=== PATIENT | male | born 1965 | race Caucasian/White ===

== ENCOUNTER 2016-11-23 18:41 | Emergency (ER) | payer OTHER ==
--- NOTE | ~2016-11-23 | ER ---
PATIENT'S NAME: DANE RAGLAND [facility] AGE: 51 Y [address] ROOM: [place] [address] LOCATION: ED ADMIT DATE: 11/23/2016 ER/Outpatient Report DISCHARGE DATE: 11/23/2016 FAMILY PHYSICIAN: Tonio Chamorro MD ATTENDING PHYSICIAN: Tramaine Matta Time of Arrival: 1836 hours. Time of Evaluation: 1836 hours. CHIEF COMPLAINT: Low blood sugar. HISTORY OF PRESENT ILLNESS: The patient is a 51-year-old male, who presents to the emergency department today with a chief complaint of low blood sugar. He was brought in by EMS. The EMS reports that upon arrival, they noted a blood sugar of 61, he was given 1 amp of D50 with resolution of the patient's symptoms. Apparently, he had very slowed thought process. He had episodes of confusion while at a grocery store. His , who also presents with him, reports that she helped lower him down to the floor. He did not fall. He has kind of started pointing off in the space. He does report that they have been adjusting his insulin medication for his diabetes, today with his first day taking the higher dose. He was taking 10 units of Humalog and 24 units of Toujeo, has just increased this dose today to 13 units of Humalog and 28 units of Toujeo. He denies any chest pain or shortness of breath. No headache. No fevers or chills. No nausea or vomiting. No diarrhea or constipation. PAST MEDICAL HISTORY: Insulin-dependent diabetes. PAST SURGICAL HISTORY: Left foot. SOCIAL HISTORY: The patient denies any tobacco, alcohol, or illicit drug use. ALLERGIES: NO KNOWN DRUG ALLERGIES. MEDICATIONS: Please see list. REVIEW OF SYSTEMS: All systems are reviewed by myself and are negative with the exception of those discussed in the HPI and past medical history. PATIENT'S NAME: ELLYN DANE Oswaldo [facility] AGE: 51 Y [address] ROOM: [place] [address] LOCATION: [facility] ADMIT DATE: 11/23/2016 ER/Outpatient Report DISCHARGE DATE: 11/23/2016 FAMILY PHYSICIAN: Tonio Chamorro MD ATTENDING PHYSICIAN: Tramaine Matta PHYSICAL EXAM: Weight 79.3kg, BP 136/79, P 100, RR 18, Temp 97.0, SpO2 96% on room air. GENERAL: The patient is an 51-year-old male, appears as stated age, in no acute distress at this time. HEENT: Head: Normocephalic, atramatic. Pupils are equal, round, and reactive to light and accommodation. Extraocular motions are intact. Nares are patent bilaterally. TMs are clear. No hemotympanum. No Garcia sign. No raccoon eyes. NECK: Supple. No nuchal rigidity. CARDIOVASCULAR: Regular rate and rhythm. No murmurs, rubs, or gallops. LUNGS: Clear to auscultation bilaterally. No wheezes, rales, or rhonchi. ABDOMEN: Soft, nontender, and nondistended. No rebound, rigidity, or guarding. MUSCULOSKELETAL: The patient moves all 4 extremities. No bony tenderness to palpation. NEUROLOGICAL: A&O X4, Equal cashier strength bilaterally, downward going toes, no pronator drift, CNII-XII intact. SKIN: The patient has a skin tear noted to the right forearm. LABORATORY DATA AND X-RAYS: Accu-Chek 70, repeated at 2011 hours was 96. EKG is obtained, is interpreted by myself shows sinus rhythm with a rate 89, normal axis, normal interval. No ST elevation, ST depression, T-wave inversion. CBC is unremarkable. CMP unremarkable except for potassium of 3.2, SpO2 of 18, glucose 69. CK, CK-MB, and troponin are all normal. LFTs are normal. Urinalysis shows 15 protein, 250 glucose, 15 ketones, 10 blood, rare wbc's, rbc's, and epithelials, negative bacteria. IMPRESSION: 1. Hypoglycemia. 2. Initial visit. EMERGENCY DEPARTMENT COURSE: The patient was brought back to the examination room. Seen and evaluated by myself. An IV is established. Laboratory analysis and imaging are obtained as described above. The patient was given 1 amp of D50 prior to arrival by EMS. He is back to his normal self after the glucose. He has been adjusting his insulin medications. I do suspect this is all due to hypoglycemia. The results of the testing are as described above. I have discussed results with the patient's . I have contacted Dr. Bazan, who is on-call for the patient's primary care doctor, Dr. Chamorro. He has recommended decreasing the patient's Toujeo to 20 units tonight. He is to check his blood sugars at midnight and 3:00 a.m., to have cookies at his bedside, and call Dr. Bazan for any concerns tonight. He is to follow up with Dr. Chamorro tomorrow in the clinic. I have discussed this with the patient's . I have discussed return to care instructions including worsening symptoms, chest pain, shortness breath, or any other concerns to return to the emergency department as soon as possible. The patient is agreeable, is agreeable and without further questions at this time. DISPOSITION: The patient discharged home in good condition. DO STEPHANIE LANGSTON/modl /[id number] d: 11/24/16 0144 t: 11/24/16 0219, OUTPATIENT REPORT
[2016-11-23 19:03] LABS: BASOPHIL # 0.1 K/uL (0.0-0.2); BASOPHIL % 0.8 %; EOSINOPHIL # 0.4 K/uL (0.0-0.5); EOSINOPHIL % 3.8 %; HEMATOCRIT 43.4 % (37.0-53.0); HEMOGLOBIN 14.8 g/dL (12.0-17.0); IMMATURE GRANULOCYTE % 0.4 %; LYMPHOCYTE # 3.1 K/uL (0.8-4.0); MCH 29.4 pg (27.0-34.0); MCHC 34.1 gm/dL (32.0-36.5); MCV 86.1 fl (83.0-98.0); MONOCYTE # 0.9 K/uL (0.0-1.0); MONOCYTE % 10.1 %; MPV 8.8 fl (9.4-12.4); NEUTROPHIL # (ANC) 4.8 K/uL (1.4-9.0); NEUTROPHIL % 51.9 %; NRBC % 0 /100WBC (0-0.00); PLATELET COUNT 348 K/uL (150-450); RBC 5.04 M/uL (4.00-6.00); RDW-CV 13.1 % (11.9-14.6); WBC 9.2 K/uL (4.0-11.0)
[2016-11-23 19:21] LABS: ALK PHOS 94 IU/L (33-138); ALT 24 IU/L (12-78); ANION GAP 18.2 (10.0-19.0); AST 14 IU/L (10-40); BLOOD UREA NITROGEN 14 mg/dL (6-24); CALCIUM 8.6 mg/dL (8.5-10.5); CHLORIDE 108 mMol/L (96-110); CO2 18 mMol/L (22-32); CPK 107 IU/L (35-332); ESTIMATED GFR (MDRD EQUATION) > 60; POTASSIUM 3.2 mMol/L (3.7-5.1); SODIUM 141 mMol/L (135-145); TOTAL BILIRUBIN 0.4 mg/dL (0.0-1.5)
[2016-11-23 19:48] LABS: BILIRUBIN URINE NEGATIVE (NEGATIVE); BLOOD URINE 10 /UL (NEGATIVE); COLOR URINE STRAW (YELLOW); GLUCOSE URINE 250 mg/dL (NEGATIVE); KETONE URINE 15 mg/dL (NEGATIVE); LEUKOCYTES URINE NEGATIVE /UL (NEGATIVE); NITRITE URINE NEGATIVE (NEGATIVE); PROTEIN URINE 15 mg/dL (NEGATIVE); SPEC GRAVITY URINE 1.025 (1.003-1.035); TURBIDITY URINE CLEAR (CLEAR); UROBILINOGEN URINE NORMAL (NORMAL)
[2016-11-23 20:03] LABS: AMORPHOUS URINE 1+ (NEGATIVE); BACTERIA URINE NEGATIVE (NEGATIVE); EPITHELIAL URINE RARE #/HPF (NEGATIVE); RBC URINE RARE #/HPF (NEGATIVE); WBC URINE RARE #/HPF (NEGATIVE)
== END 2016-11-23 20:30 | disposition disaster alternative care site (69) ==
LOC: GMED 18:41 → GAMB 18:41 → GMED 20:30
PROVIDERS: Emergency Medicine
DX: E11.649 Type 2 diabetes mellitus with hypoglycemia without coma (principal)
CPT/HCPCS: J7030